=== PATIENT | male | born 1935 | race Caucasian/White ===

== ENCOUNTER → 2019-07-07 09:04 | Outpatient (CLI) | payer MEDICARE, OTHER, SELFPAY ==
--- NOTE | 2019-07-07 | DI.MRI.S_ITS ---
PROCEDURE: MR HEAD/BRAIN WO/W CON INDICATIONS: Headache TECHNIQUE: Noncontrast axial T1 spin echo, axial T2 fast spin echo, sagittal and axial FLAIR, coronal T2 fast spin echo, axial gradient echo, axial diffusion and ADC through the brain. After the administration of contrast, axial and coronal T1 spin echo with fat saturation through the brain. COMPARISON: None. FINDINGS: Image quality: Excellent. CSF spaces: Basal cisterns are patent. No extra-axial fluid collections. Ventricles are normal in size and shape. Brain: No midline shift. No intracranial bleeds or masses. No abnormal intracranial enhancement. There is cerebral volume loss for age. There is periventricular white matter chronic small vessel ischemic change. The brainstem appears normal. Diffusion-weighted images demonstrate no acute ischemic insults. No chronic ischemic insults. Normal intravascular flow voids are present. There are two punctate hypointensities identified on gradient sequence within the right posterior parietal lobe on series 10 image 15. Skull and face: Calvarial marrow is normal in signal. Orbits appear normal. Sinuses: Sinuses demonstrate minimal pansinus mucosal thickening. IMPRESSION: 1. No acute intracranial process. 2. Moderate atrophy and chronic microvascular ischemic changes. Dictated by: Julianne Sharma M.D. on 07/07/2019 at 10:26 Approved by: Julianne Sharma M.D. on 07/07/2019 at 10:33
== END ==
PROVIDERS: Family Provider Family Medicine; PCP Family Medicine; Visit Provider Family Medicine
DX: R51 Headache (principal)
CPT/HCPCS: 70553; A9579

== ENCOUNTER → 2024-08-08 09:38 | Outpatient (CLI) | payer MEDICARE, OTHER, SELFPAY | LOC: RESP 09:39 | PROVIDERS: PCP Nurse Practitioner Family; Referring Provider Physician Assistant; Visit Provider Physician Assistant | DX: J84.10 Pulmonary fibrosis, unspecified (principal); R06.02 Shortness of breath; R94.2 Abnormal results of pulmonary function studies | CPT/HCPCS: 94060; 94726; 94729 ==

== ENCOUNTER 2025-04-13 09:26 | Day surgery (SDC) | payer MEDICARE, OTHER, SELFPAY ==
--- NOTE | 2025-04-13 06:59 | P.HP_ITS ---
History of Present Illness
--- NOTE | 2025-04-13 06:59 | PM.HP.IH.1 ---
History of Present Illness History of Present Illness Date Patient Seen: 04/13/25 Time Patient Seen: 06:59 Chief complaint: SDC Narrative: Patient presents for EGD/Colonoscopy today. H/O anemia, GERD, change in bowel habits. [facility] Surgical History (Updated 02/20/25 @ 17:12 by Chacho Alves MD) Status post colonoscopy History of cataract removal with insertion of prosthetic lens History of tonsillectomy Family History (Updated 01/28/16 @ 00:00 by Conversion Provider) Father Cancer Mother Mental health problem Grandfather Heart disease Grandmother Heart disease Meds Home Medications and Allergies Home Medications ?Medication ?Instructions ?Recorded ?Confirmed ?Type ranibizumab 0.5 mg/0.05 mL 0.5 mg IO PRN ##0 04/23/11 History intravitreal solution for injection (Lucentis) VITAMIN D (Vitamin D3) Q DAY ##0 11/29/12 History ibuprofen 200 mg tablet (Advil) 200 mg PO PRN ##0 11/29/12 History CALCIUM CITRATE/VITAMIN D3 1 tab PO BID ##0 01/16/16 History OMEGA-3 FATTY ACIDS (FISH OIL) 1,000 mg PO BID ##0 01/16/16 History [COENZYME Q 10] 100 mg PO BID ##0 01/16/16 History ascorbic acid (vitamin C) 500 mg 1,000 mg PO QDAY ##0 01/16/16 History tablet chondroitin sulfate A 250 mg PO BID ##0 01/16/16 History capsule (Chondroitin Sulfate) lutein 10 mg tablet 10 mg PO Q DAY ##0 01/16/16 History magnesium amino acid chelate 100 500 mg PO BID ##0 01/16/16 History mg tablet multivitamin (Multiple Vitamins 1 tab PO QDAY #0 tabs 01/16/16 History tablet) sildenafil (pulm.hypertension) 20 20 mg PO PRN PRN #30 tabs 08/04/16 Rx mg tablet Disabled Parking Permit rubio ##2 10/14/16 History Disabled Parking Permit dev ##1 10/14/16 Rx atorvastatin 40 mg tablet (Lipitor) 40 mg PO HS #90 tabs 03/03/17 02/20/25 Rx warfarin 5 mg tablet (Coumadin) 5 mg PO Q DAY #90 tabs 03/03/17 Rx diltiazem HCl 180 mg capsule,24 180 mg PO DAILY 02/20/25 02/20/25 History hr,extended release warfarin 4 mg tablet mg PO 02/20/25 02/20/25 History sodium,potassium,mag sulfates 17.5 See Rx Instructions PO .COMPLEX 03/13/25 Rx gram-3.13 gram-1.6 gram oral soln #354 mL (Suprep Bowel Prep Kit) Allergies Allergy/AdvReac Type Severity Reaction Status Date / Time Beta-Blockers Allergy Severe CONFUSION, Unverified 02/20/25 15:39 (Beta-Adrenergic Bloc SHORT TERM (BETA-BLOCKERS MEMORY (BETA-ADRENERGIC BLOC) LOSS, BRADYCARDIA, FATIGUE doxazosin (DOXAZOSIN) Allergy Intermediate ITCHING IN Unverified 02/20/25 15:39 WEBS OF HANDS tamsulosin (TAMSULOSIN) Allergy Mild ITCHING IN Unverified 02/20/25 15:39 WEBS OF HANDS Exam Narrative Exam Narrative: Const General: comfortable Orientation: alert and oriented x3 Resp Effort & Inspection: normal respiratory effort and able to speak in complete sentences Cardio Rate: regular rate GI Palpation: soft (NT) Extrem General: no pedal edema and no calf tenderness Assessment & Plan Assessment and plan (1) Anemia: Qualifiers: Anemia type: unspecified type Qualified Code(s): D64.9 - Anemia, unspecified Status: Acute (2) Change in bowel habits: Status: Acute Plan Plan EGD/screening colonoscopy, possible biopsy. The risks, benefits and options regarding the procedure were explained to the patient in detail. Risk discussion included but not limited to: bleeding, perforation, missed lesion, unable to reach cecum. The patient was encouraged to ask questions and they were answered to their satisfaction. The patient understands and is agreeable to proceed. Time-Based Coding :: [TOTAL MINUTES] spent with patient and on the chart (including review of chart, obtaining history, exam, reviewing outside data, placing orders, documenting exam and treatment plan, and counseling patient) on [DATE]. PROFEE Public Information Relations Manager Document charge(s): Yes Charge Codes Inpatient/observation care including admit and discharge same day: [id number]
[2025-04-13 10:04] VITALS: BP 154/66; PULSE 61; RESP 18; TEMP 36.1; O2SAT 97
[2025-04-13] MEDS: LACTATED RINGERS 1,000 ML 42 ML IV (10:24)
--- NOTE | 2025-04-13 11:17 | P.OP.EGD&C_ITS ---
Operative Date/Time/Diagnoses
--- NOTE | 2025-04-13 11:17 | PM.OP.EC ---
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 The procedure, its risks, benefits, and alternatives were discussed. Patient understood and agreed to proceed. The patient was placed in the left lateral decubitus position with head elevated. Sedation given per anesthesia. The video endoscope was inserted into the oropharynx and guided under direct vision into the esophagus, stomach, and duodenum which were carefully examined. The scope was retroflexed to examine the hiatus and gastroesophageal junction. Antral biopsies were obtained for Helicobacter pylori. The patient tolerated the procedure very well. There were no apparent complications. Significant EGD findings: Z-line noted at: 40cm Mild esophagitis, biopsied No hiatal hernia Moderate gastritis greater curve body of stomach, biopsied; small clots, evidence of bleeding 5mm gastric polyp, sessile, proximal in cardia, biopsied Moderate antral gastritis, biopsied Mild duodenitis No ulcer in duodenum, stomach or esophagus Colonoscopy Patient placed in left lateral recumbent position. Time out was performed. Procedural sedation was administered by anesthesia. Examination began with a thorough inspection of the perianal area. There was no evidence of fissures, fistulae, external hemorrhoids or cutaneous malignancy. The colonoscope was then placed into the rectum and the lumen was insufflated with carbon dioxide. The scope was carefully advanced forward. Ultimately the cecum was intubated and confirmed by identification of the ileocecal valve, the appendiceal orifice and the confluence of the taenia. The scope was then slowly withdrawn examining the colon thoroughly in all directions. In the rectum, retroflexion of the scope was performed for inspection of the distal rectum and anal canal. ?Significant colonoscopy findings: ?1. Quality of the preparation-good, [place] 2-3, improved with irrigation/suction 2. Rectal polyp, 3mm, sessile, benign appearing, removed by cold snare and retrieved for pathology 3. Proctitis with evidence for bleeding, due to radiation, biopsied 4. Few scattered sigmoid diverticulae, small mouth 5. No active bleeding Overall, it is likely that contributing factors to his anemia include warfarin therapy, gastritis and radiation proctitis. 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
[2025-04-13 11:41] VITALS: BP 110/53; PULSE 58; RESP 15; TEMP 36.4; O2SAT 92
[2025-04-13 11:45] VITALS: BP 113/70; PULSE 62; RESP 16; O2SAT 98
[2025-04-13 11:52] VITALS: BP 134/63; PULSE 55; RESP 18; TEMP 36.4; O2SAT 99
== END 2025-04-13 12:19 | disposition home or self-care (01) ==
PROVIDERS: PCP Physician Assistant; Referring Provider Surgery; Visit Provider Surgery
PROC: 0DJ08ZZ Inspection of Upper Intestinal Tract, Via Natural or Artificial Opening Endoscopic (ICD-10-PCS; CPT 45380; principal; 2025-04-13 11:15)
PROC: 0DJD8ZZ Inspection of Lower Intestinal Tract, Via Natural or Artificial Opening Endoscopic (ICD-10-PCS; CPT 45378; 2025-04-13 11:15)
DX: R19.4 Change in bowel habit (principal); D64.9 Anemia, unspecified; K29.70 Gastritis, unspecified, without bleeding; K20.90 Esophagitis, unspecified without bleeding; K31.7 Polyp of stomach and duodenum; K29.80 Duodenitis without bleeding; K57.30 Diverticulosis of large intestine without perforation or abscess without bleeding; K62.89 Other specified diseases of anus and rectum
CPT/HCPCS: 45380; 43239; J2704; J7120